=== PATIENT | male | born 1970 | race African-American/Black ===

== ENCOUNTER 2020-12-03 04:00 | Inpatient (IN) ==
[2020-12-03] MEDS ORDERED: SODIUM CHLORIDE 0.9% 1000ML 1,000 ML IV ONE (04:12)
[2020-12-03] MEDS ORDERED: fentaNYL citrate 100 MCG/2 ML VIAL IV STA (04:12)
--- NOTE | 2020-12-03 04:14 | Emergency Department Note ---
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 Developed rapidly worsening epigastric pain with nausea, vomiting and diarrhea. After vomiting started having substernal chest pain as well. Called 911 as weak/lightheaded and had 3 episodes of near/syncope for EMS. On arrival very uncomfortable complaining of severe epigastric pain, no further chest pain. Dehydrated by exam initially. IV fluids, fentanyl with some improvement and given pain, abnormal cxr went straight to CT for CTA. Per rads initially no acute findings on CTA chest/abdo/pelvis. On return CT does start feeling better though required some further medication. Dimer elevated uncertain etiology. Other labs unremarkable. EKG normal as is initial troponin. Given multiple syncope for EMS and chest pain will have eval by hospitalist. No previous cardiac issues and given epigastric pain will hold off on asa at this time. No headache, neck pain, neuro deficits thoughout stay. Triage/Nursing Notes reviewed by Me Differentials:Vasovagal event, dehydration, infection, hypoglycemia, electrolyte abnormalities, cardiac sources, intracerebral event, pulmonary embolism, seizure, toxicologic, neurologic, as well as other pathologies. Vital Signs: reviewed and remarkable for no significant abnormalities Interventions: saline lock, nss bolus, fentanyl 100mcg, dilaudid 0.5mg IV Labs:Reviewed and remarkable for elevated dimer Imaging:X ray results are stated below per my interpretation: Chest: 1 view: Bilateral congestion with widened mediastinum [facility] Radiologist interpretation reviewed by me: "CTA CHEST: No aortic aneurysm or dissection. Motion artifact limits evaluation of lung parenchyma. Mild atelectasis considered most likely. No effusion or pneumothorax. Motion artifact also limits evaluation for pulmonary embolism. Artifact simulates a pulmonary embolism in left upper lobe (image 90, series 7). No convincing evidence of pulmonary embolism. CTA ABDOMEN & PELVIS W/WO Contrast: No aortic aneurysm or dissection. Hepatic steatosis. Solid organs otherwise unremarkable. No free air or free fluid. No bowel obstruction. Radiologist: Cole Dunne MD" EKG:Per My Interpretation: Indication Syncope: NSR 78 bpm, qtc 430. No Ectopy. No Ischemia. No previous for comparison Cardiac/Tele Monitoring: Cardiac Monitoring: An Order was placed for continuous cardiac monitoring. The monitor shows a rate of 70 with a normal sinus rhythm. Consults:Dr Jacob RIGGS Hospitalist Plan: Disposition:Hospitalization. Condition: Good History of Present Illness: 50 yr old male arrives for evaluation of epigastric pain. Patient notes that for the last few hours he has been having increasing epigastric pain. Radiates up his chest. No pain to back nor flanks. Associated with nausea, vomiting, and diarrhea. He has had 3 episodes of syncope. Worse with movement/standing. Better with rest/laying flat. No medications taken for this. This has not occurred previously. Denies previous abdominal issues. No recent ETOH use. No fevers, chills, sob, headache, neck pain, back pain, urinary symptoms, leg swelling, calf pain, rashes, nor other symptoms. Denies trauma nor injury. No medications prior to arrival via EMS. ROS: See above HPI for pertinent positives & negatives. A total of 10 systems reviewed and were otherwise negative. 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 EYES: No scleral icterus, unremarkable pupils. ENT: Mucous membranes moist, no nasal congestion. NECK: No masses appreciated, nomeningismus, trachea is midline. RESPIRATORY: No dyspnea. Clear to auscultation and equal bilaterally. No wheeze, no rhonchi. CARDIOVASCULAR: Regular rate and rhythm.No murmurs, rubs, gallops appreciated. GASTROINTESTINAL: Diffuse upper abdominal TTP and guarding, though abdomen softBowel sounds positive.No masses appreciated. BACK: No midline tenderness, no CVA tenderness EXTREMITIES: Normal motion all extremities, no cyanosis, no edema. NEUROLOGIC: Alert and oriented, no acute motor or sensory deficits, no focal weakness, cranial nerves grossly intact. SKIN: No rash, no jaundice, no diaphoresis. PSYCH: Appropriate GCS: 15 ED Course: Times/Reassessments: multiple rechecks, gradually improving, no further chest pain though epigastric pain remains mild Cole Sandhu MD Past Med/Surg History Medical History (Updated 12/03/20 @ 07:13 by Glenna James DO) No significant past medical history Surgical History (Updated 12/03/20 @ 07:13 by Glenna James DO) No significant past surgical history Family History (Updated 12/03/20 @ 07:13 by Glenna James DO) Other Diabetes Social History (Updated 12/03/20 @ 07:13 by Glenna James DO) Smoking Status: Never smoker Hx Alcohol Use: No Hx Substance Use: No Feels Safe at Home: Yes Allergies Allergies Allergy/AdvReac Type Severity Reaction Status Date / Time No Known Allergies Allergy Unverified 12/03/20 05:35 Home Meds Home Medications Medication Instructions Recorded Confirmed No Known Home Medications 12/03/20 12/03/20 Results & Data (ED) Vital Signs Vital Signs - 24 hr 12/03/20 04:01 12/03/20 04:10 12/03/20 04:22 Temperature 37.2 C Temperature Source Oral Pulse Rate 89 79 70 Pulse Rate from SpO2 Sensor 80 69 Pulse Rhythm Regular Pulse Strength Normal Respiratory Rate 19 22 19 Respiratory Effort / Characteristics Non-Labored Spontaneous Respiratory Depth Normal Respiratory Pattern Regular Blood Pressure 159/92 H 148/99 H 137/92 Blood Pressure Mean 114 115 107 Blood Pressure Position Lying Pulse Oximetry 98 96 96 Oxygen Delivery Method Room Air Room Air Room Air Oxygen Flow Rate Sepsis Recent Fever Within 48 Hours No Sepsis New/Unexplained Change in Mental Status N/A Sepsis Action Taken by Nursing No Action Required 12/03/20 04:30 12/03/20 04:31 12/03/20 04:47 Temperature Temperature Source Pulse Rate 65 64 Pulse Rate from SpO2 Sensor 65 72 65 Pulse Rhythm Pulse Strength Respiratory Rate 10 L 14 Respiratory Effort / Characteristics Respiratory Depth Respiratory Pattern Blood Pressure 111/85 139/94 Blood Pressure Mean 93 109 Blood Pressure Position Pulse Oximetry 88 L 97 99 Oxygen Delivery Method Room Air Nasal Cannula Room Air Oxygen Flow Rate 2 Sepsis Recent Fever Within 48 Hours Sepsis New/Unexplained Change in Mental Status Sepsis Action Taken by Nursing 12/03/20 05:01 12/03/20 05:30 12/03/20 06:00 Temperature Temperature Source Pulse Rate 69 69 72 Pulse Rate from SpO2 Sensor 69 69 73 Pulse Rhythm Pulse Strength Respiratory Rate 14 14 14 Respiratory Effort / Characteristics Respiratory Depth Respiratory Pattern Blood Pressure 128/87 137/92 129/83 Blood Pressure Mean 100 107 98 Blood Pressure Position Pulse Oximetry 99 100 99 Oxygen Delivery Method Room Air Room Air Room Air Oxygen Flow Rate Sepsis Recent Fever Within 48 Hours Sepsis New/Unexplained Change in Mental Status Sepsis Action Taken by Nursing 12/03/20 06:30 Temperature Temperature Source Pulse Rate 69 Pulse Rate from SpO2 Sensor Pulse Rhythm Pulse Strength Respiratory Rate 13 Respiratory Effort / Characteristics Respiratory Depth Respiratory Pattern Blood Pressure 133/79 Blood Pressure Mean 97 Blood Pressure Position Pulse Oximetry 100 Oxygen Delivery Method Room Air Oxygen Flow Rate Sepsis Recent Fever Within 48 Hours Sepsis New/Unexplained Change in Mental Status Sepsis Action Taken by Nursing Laboratory Data Result diagrams: 12/03/20 04:26 12/03/20 04:26 Lab Results 12/03/20 12/03/20 12/03/20 Range/Units 04:26 04:26 04:26 WBC 8.95 (4.8-10.8) K/uL RBC 5.95 (4.7-6.1) M/uL Hgb 16.8 (14.0-18.0) g/dL Hct 49.6 (42-52) % MCV 83.4 (80-100) fL MCH 28.2 (25-34) pg MCHC 33.9 (32-36) g/dL RDW Std Deviation 45.8 (36.4-46.3) fL RDW Coeff of Miguel 15.0 H (11.5-14.5) % Plt Count 282 (130-400) K/uL MPV 9.7 (7.4-10.4) fL Immature Gran % (Auto) 0.0 % Neut % (Auto) 71.6 % Lymph % (Auto) 15.9 % Pepin % (Auto) 8.7 % Eos % (Auto) 3.7 % Baso % (Auto) 0.1 % Neut # (Auto) 6.41 (1.4-6.5) K/uL Lymph # (Auto) 1.42 (1.2-3.4) K/uL [place] # (Auto) 0.78 H (0.11-0.59) K/uL Eos # (Auto) 0.33 (0-0.5) K/uL Baso # (Auto) 0.01 (0-0.2) K/uL Immature Gran # (Auto) 0.00 (0.00-0.02) K/uL D-Dimer 1050 H* (0-500) ug/L FEU Sodium 138 (136-145) mmol/L Potassium 3.9 (3.5-5.1) mmol/L Chloride 101 (98-107) mmol/L Carbon Dioxide 33 H (21-32) mmol/L Anion Gap 4.0 (3-11) BUN 23 H (7-18) mg/dl Creatinine 1.39 (0.6-1.4) mg/dl Est Cr Clr Drug Dosing 70.0 ml/min Est GFR ( Amer) 67.1 Est GFR (Non-Af Amer) 57.9 BUN/Creatinine Ratio 16.3 (10-20) Glucose 111 H (70-99) mg/dl Calcium 9.7 (8.5-10.1) mg/dl Magnesium 2.8 H (1.8-2.4) mg/dl Total Bilirubin 1.0 (0.2-1) mg/dl Direct Bilirubin 0.2 (0-0.2) mg/dl AST 44 H (15-37) U/L ALT 48 (12-78) U/L Alkaline Phosphatase 74 (45-117) U/L Troponin I < 0.015 (0-0.045) ng/ml Total Protein 9.2 H (6.4-8.2) gm/dl Albumin 4.2 (3.4-5.0) gm/dl Lipase 121 (73-393) U/L COVID-19 Eval Order SARS-CoV-2 (PCR) (Negative) Influenza Type A (PCR) (Neg) Influenza Type B (PCR) (Neg) RSV (RT-PCR) (Neg) 12/03/20 12/03/20 Range/Units 04:26 04:26 WBC (4.8-10.8) K/uL RBC (4.7-6.1) M/uL Hgb (14.0-18.0) g/dL Hct (42-52) % MCV (80-100) fL MCH (25-34) pg MCHC (32-36) g/dL RDW Std Deviation (36.4-46.3) fL RDW Coeff of Miguel (11.5-14.5) % Plt Count (130-400) K/uL MPV (7.4-10.4) fL Immature Gran % (Auto) % Neut % (Auto) % Lymph % (Auto) % [place] % (Auto) % Eos % (Auto) % Baso % (Auto) % Neut # (Auto) (1.4-6.5) K/uL Lymph # (Auto) (1.2-3.4) K/uL Pepin # (Auto) (0.11-0.59) K/uL Eos # (Auto) (0-0.5) K/uL Baso # (Auto) (0-0.2) K/uL Immature Gran # (Auto) (0.00-0.02) K/uL D-Dimer (0-500) ug/L FEU Sodium (136-145) mmol/L Potassium (3.5-5.1) mmol/L Chloride (98-107) mmol/L Carbon Dioxide (21-32) mmol/L Anion Gap (3-11) BUN (7-18) mg/dl Creatinine (0.6-1.4) mg/dl Est Cr Clr Drug Dosing ml/min Est GFR ( Amer) Est GFR (Non-Af Amer) BUN/Creatinine Ratio (10-20) Glucose (70-99) mg/dl Calcium (8.5-10.1) mg/dl Magnesium (1.8-2.4) mg/dl Total Bilirubin (0.2-1) mg/dl Direct Bilirubin (0-0.2) mg/dl AST (15-37) U/L ALT (12-78) U/L Alkaline Phosphatase (45-117) U/L Troponin I (0-0.045) ng/ml Total Protein (6.4-8.2) gm/dl Albumin (3.4-5.0) gm/dl Lipase (73-393) U/L COVID-19 Eval Order [facility]FluRsv at [facility] SARS-CoV-2 (PCR) NEGATIVE (Negative) Influenza Type A (PCR) Negative (Neg) Influenza Type B (PCR) Negative (Neg) RSV (RT-PCR) Negative (Neg) Administered Medications Discontinued Medications Fentanyl Citrate (Fentanyl Citrate 100 Mcg/2 Ml Vial) 100 mcg IV NOW STA Stop: 12/03/20 04:13 Last Admin: 12/03/20 04:20 Dose: 100 mcg Documented by: [id number] Hydromorphone HCl (Hydromorphone Inj 0.5 Mg/0.5 Ml Syr) 0.5 mg IV NOW STA Stop: 12/03/20 05:37 Last Admin: 12/03/20 06:12 Dose: 0.5 mg Documented by: [id number] Sodium Chloride (Nss 1000ml) 1,000 mls @ 999 mls/hr IV .Q1H1M ONE Stop: 12/03/20 05:12 Last Infusion: 12/03/20 05:36 Dose: 0 mls/hr Documented by: [id number] Admin: 12/03/20 04:20 Dose: 999 mls/hr Documented by: [id number] Ioversol (Optiray 350 500ml) 125 ml IV ONCE ONE Stop: 12/03/20 04:56 Last Admin: 12/03/20 04:55 Dose: 111 ml Documented by: [id number] Imaging Data Radiologist's Impression: Chest X-Ray 12/03/20 04:12 XR chest 1V portable CLINICAL HISTORY: syncope COMPARISON STUDY: No previous studies for comparison. FINDINGS: The heart is enlarged. There is elevation of interstitium. Pulmonary vascular congestion must be considered.[An interstitial infectious/inflammatory processes could appear similar. There is mild left basilar atelectasis. There is no lobar consolidation. There are no large pleural effusions. IMPRESSION: 1. Elevation of interstitium. Clinical correlation with regards to mild pulmonary vascular congestion/fluid overload recommended. Interstitial i nfectious/inflammatory processes could appear similar. Clinical and radiographic follow-up are recommended ACT 112: Negative or not required by law. Electronically signed by: Román Kan M.D. 12/03/2020 7:28 AM Discharge Plan Visit Data Chief Complaint: Cardiac Assessment Stated Complaint: SYNCOPE/CHEST PAIN/NAUSEA/VOMITING ED Provider: Cole Sandhu Discharge Problem: Syncope, Substernal chest pain, Epigastric abdominal pain, Nausea, vomiting and diarrhea Forms Stand Alone Forms: RACTIV Prescriptions Prescriptions: No Action No Known Home Medications RF: 0 Discharge Problem: Syncope Qualifiers: Syncope type: unspecified Qualified Code(s): R55 - Syncope and collapse
[2020-12-03 04:38] LABS: Basophils # (auto) 0.01 K/uL (0-0.2); Basophils % (auto) 0.1 %; Eosinophils # (auto) 0.33 K/uL (0-0.5); Eosinophils % (auto) 3.7 %; Hematocrit (blood only) 49.6 % (42-52); Hemoglobin 16.8 g/dL (14.0-18.0); Lymphocytes # (auto) 1.42 K/uL (1.2-3.4); Lymphocytes % (auto) 15.9 %; Mean Corpuscular Hemoglobin 28.2 pg (25-34); Mean Corpuscular Hgb Conc 33.9 g/dL (32-36); Mean Corpuscular Volume 83.4 fL (80-100); Mean Platelet Volume 9.7 fL (7.4-10.4); Monocytes # (auto) 0.78 K/uL (0.11-0.59); Monocytes % (auto) 8.7 %; Neutrophils # (auto) 6.41 K/uL (1.4-6.5); Neutrophils % (auto) 71.6 %; Platelet Count 282 K/uL (130-400); RDW Standard Deviation 45.8 fL (36.4-46.3); Red Blood Count 5.95 M/uL (4.7-6.1); White Blood Count 8.95 K/uL (4.8-10.8)
[2020-12-03 04:55] LABS: Alanine Aminotransferase 48 U/L (12-78); Albumin Level 4.2 gm/dl (3.4-5.0); Aspartate Aminotransferase 44 U/L (15-37); BUN Creatinine Ratio 16.3 (10-20); Bilirubin Direct 0.2 mg/dl (0-0.2); Blood Urea Nitrogen 23 mg/dl (7-18); Calcium 9.7 mg/dl (8.5-10.1); Carbon Dioxide 33 mmol/L (21-32); Chloride 101 mmol/L (98-107); Est GFR (African American) 67.1; Est GFR (Non-African American) 57.9; Glucose 111 mg/dl (70-99); Lipase 121 U/L (73-393); Magnesium 2.8 mg/dl (1.8-2.4); Potassium 3.9 mmol/L (3.5-5.1); Sodium 138 mmol/L (136-145)
[2020-12-03] MEDS ORDERED: OPTIRAY 350 500ml IV ONE (04:55)
[2020-12-03 05:00] LABS: Alkaline Phosphatase 74 U/L (45-117); Total Protein 9.2 gm/dl (6.4-8.2); Troponin I < 0.015 ng/ml (0-0.045)
[2020-12-03 05:19] LABS: D Dimer 1050 ug/L FEU (0-500)
[2020-12-03] MEDS ORDERED: HYDROmorphone INJ 0.5 MG/0.5 ML SYR IV STA (05:36)
[2020-12-03 05:41] LABS: Influenza A virus by PCR Negative (Neg); Influenza B virus by PCR Negative (Neg); RSV by PCR Negative (Neg); SARS CoV2 RNA(COVID-19) InHosp NEGATIVE (Negative)
[2020-12-03] MEDS ORDERED: FAMOTIDINE 20MG/5ML IV PUSH IV STA (06:54)
--- NOTE | 2020-12-03 07:17 | History & Physical Report ---
Date of Service December 03, 2020 Assessment & Plan (1) Syncope: Reported syncope x 3 episodes after vomiting preceded by dizziness/lightheadedness. ?Orthostatic vs vasovagal. EKG is WNL. Troponin unremarkable. -Admit to medical with telemetry -Check orthostatic VS -NSS -Repeat troponin x 2 Present on Admission?: Yes (2) Nausea, vomiting and diarrhea: Uncertain etiology. Laboratory results are unremarkable as is CT imaging. Patient reports taking a small amount of milk of magnesium prior to his episode - ?medication effect -Zofran PRN -Pepcid x 1 dose now then daily for heartburn F/E/N - NSS, electrolytes WNL, Heart healthy diet as tolerated Ppx - Encourage ambulation Code - Full Dispo - Admit to medical with telemetry Present on Admission?: Yes History of Present Illness Chief Complaint: Syncope Primary Care Provider: NO PCP 50yo AA male with no known medical history presenting with diarrhea, vomiting, abdominal pain and syncope x 3 events. 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 He pulled over and called for service then developed abdominal pain and had 6-7 episodes of watery, non-bloody diarrhea. He then developed nausea with 4 episodes of non-bloody emesis followed by burning substernal chest discomfort. He felt very weak and lightheaded and reportedly passed out x 3 episodes. Now with abdominal pain as well as ongoing nausea. 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 ER Course: Fentanyl, Dilaudid, NSS Allergies Allergy/AdvReac Type Severity Reaction Status Date / Time No Known Allergies Allergy Unverified 12/03/20 05:35 Home Medications Medication Instructions Recorded Confirmed Type No Known Home Medications 12/03/20 12/03/20 History Past Med/Surg History Medical History (Updated 12/03/20 @ 07:13 by Glenna James DO) No significant past medical history Surgical History (Updated 12/03/20 @ 07:13 by Glenna James DO) No significant past surgical history Family History (Updated 12/03/20 @ 07:13 by Glenna James DO) Other Diabetes Social History (Updated 12/03/20 @ 07:13 by Glenna James DO) Smoking Status: Never smoker Hx Alcohol Use: No Hx Substance Use: No Feels Safe at Home: Yes Review of Systems Review of Systems: All systems reviewed & are unremarkable except as noted in HPI & below Physical Exam Physical Exam: General: patient resting comfortably, NAD, non-toxic in appearance, AA&O x 4 Skin: warm, dry, intact, no rashes or lesions HEENT: NC/AT, PERRL, EOMI, anicteric sclera, conjunctiva without injection, external ear normal to inspection and nontender, nares patent, moist mucus membranes, dentition intact, no oropharyngeal lesions, neck supple, trachea midline, no LAD, no thyromegaly, no JVD Heart: +S1/S2, regular, no m/r/g Lungs: equal air entry bilaterally, no rales/rhonchi/wheezes Abd: +BS, soft, ND, tender wtih deep palpation diffusely with no rebound or guarding, no masses/organomegaly/ascites Ext: warm, 2+ pulses in UE/LE bilaterally, no clubbing/cyanosis or edema Neuro: nonfocal, patient AA&O x 4, speech intact, no facial droop, moving all extremities on command with equal strength 5/5 Results & Data Results & Data ([place]) Vital Signs (Past 12 Hours) Vital Signs Temp Pulse Resp BP Pulse Ox 12/03/20 06:30 69 13 133/79 100 12/03/20 06:00 72 14 129/83 99 12/03/20 05:30 69 14 137/92 100 12/03/20 05:01 69 14 128/87 99 12/03/20 04:47 64 14 139/94 99 12/03/20 04:31 97 12/03/20 04:30 65 10 L 111/85 88 L 12/03/20 04:22 70 19 137/92 96 12/03/20 04:10 79 22 148/99 H 96 12/03/20 04:01 37.2 C 89 19 159/92 H 98 Laboratory Results Lab Results 12/03/20 12/03/20 12/03/20 Range/Units 04:26 04:26 04:26 WBC 8.95 (4.8-10.8) K/uL RBC 5.95 (4.7-6.1) M/uL Hgb 16.8 (14.0-18.0) g/dL Hct 49.6 (42-52) % MCV 83.4 (80-100) fL MCH 28.2 (25-34) pg MCHC 33.9 (32-36) g/dL RDW Std Deviation 45.8 (36.4-46.3) fL RDW Coeff of Miguel 15.0 H (11.5-14.5) % Plt Count 282 (130-400) K/uL MPV 9.7 (7.4-10.4) fL Immature Gran % (Auto) 0.0 % Neut % (Auto) 71.6 % Lymph % (Auto) 15.9 % [place] % (Auto) 8.7 % Eos % (Auto) 3.7 % Baso % (Auto) 0.1 % Neut # (Auto) 6.41 (1.4-6.5) K/uL Lymph # (Auto) 1.42 (1.2-3.4) K/uL [place] # (Auto) 0.78 H (0.11-0.59) K/uL Eos # (Auto) 0.33 (0-0.5) K/uL Baso # (Auto) 0.01 (0-0.2) K/uL Immature Gran # (Auto) 0.00 (0.00-0.02) K/uL D-Dimer 1050 H* (0-500) ug/L FEU Sodium 138 (136-145) mmol/L Potassium 3.9 (3.5-5.1) mmol/L Chloride 101 (98-107) mmol/L Carbon Dioxide 33 H (21-32) mmol/L Anion Gap 4.0 (3-11) BUN 23 H (7-18) mg/dl Creatinine 1.39 (0.6-1.4) mg/dl Est Cr Clr Drug Dosing 70.0 ml/min Est GFR ( Amer) 67.1 Est GFR (Non-Af Amer) 57.9 BUN/Creatinine Ratio 16.3 (10-20) Glucose 111 H (70-99) mg/dl Calcium 9.7 (8.5-10.1) mg/dl Magnesium 2.8 H (1.8-2.4) mg/dl Total Bilirubin 1.0 (0.2-1) mg/dl Direct Bilirubin 0.2 (0-0.2) mg/dl AST 44 H (15-37) U/L ALT 48 (12-78) U/L Alkaline Phosphatase 74 (45-117) U/L Troponin I < 0.015 (0-0.045) ng/ml Total Protein 9.2 H (6.4-8.2) gm/dl Albumin 4.2 (3.4-5.0) gm/dl Lipase 121 (73-393) U/L COVID-19 Eval Order SARS-CoV-2 (PCR) (Negative) Influenza Type A (PCR) (Neg) Influenza Type B (PCR) (Neg) RSV (RT-PCR) (Neg) 12/03/20 12/03/20 Range/Units 04:26 04:26 WBC (4.8-10.8) K/uL RBC (4.7-6.1) M/uL Hgb (14.0-18.0) g/dL Hct (42-52) % MCV (80-100) fL MCH (25-34) pg MCHC (32-36) g/dL RDW Std Deviation (36.4-46.3) fL RDW Coeff of Miguel (11.5-14.5) % Plt Count (130-400) K/uL MPV (7.4-10.4) fL Immature Gran % (Auto) % Neut % (Auto) % Lymph % (Auto) % [place] % (Auto) % Eos % (Auto) % Baso % (Auto) % Neut # (Auto) (1.4-6.5) K/uL Lymph # (Auto) (1.2-3.4) K/uL [place] # (Auto) (0.11-0.59) K/uL Eos # (Auto) (0-0.5) K/uL Baso # (Auto) (0-0.2) K/uL Immature Gran # (Auto) (0.00-0.02) K/uL D-Dimer (0-500) ug/L FEU Sodium (136-145) mmol/L Potassium (3.5-5.1) mmol/L Chloride (98-107) mmol/L Carbon Dioxide (21-32) mmol/L Anion Gap (3-11) BUN (7-18) mg/dl Creatinine (0.6-1.4) mg/dl Est Cr Clr Drug Dosing ml/min Est GFR ( Amer) Est GFR (Non-Af Amer) BUN/Creatinine Ratio (10-20) Glucose (70-99) mg/dl Calcium (8.5-10.1) mg/dl Magnesium (1.8-2.4) mg/dl Total Bilirubin (0.2-1) mg/dl Direct Bilirubin (0-0.2) mg/dl AST (15-37) U/L ALT (12-78) U/L Alkaline Phosphatase (45-117) U/L Troponin I (0-0.045) ng/ml Total Protein (6.4-8.2) gm/dl Albumin (3.4-5.0) gm/dl Lipase (73-393) U/L COVID-19 Eval Order [facility] at [facility] SARS-CoV-2 (PCR) NEGATIVE (Negative) Influenza Type A (PCR) Negative (Neg) Influenza Type B (PCR) Negative (Neg) RSV (RT-PCR) Negative (Neg) Diagnostic Findings CTA Chest and Abdomen - per STAT rad - no acute findings. No PE ECG Additional Comments: EKG with NSR at 78, no acute ischemic changes, no previous studies for comparison PG Care Time/CCT Total # of Minutes Spent Total Time Spent with Patient: Total time spent is greater than 50% in coordination of care (as documented) at patient's floor/unit and/or counseling patient: Coding Level of Care Code 94214 Initial Inpt Care Lvl 2 Diagnoses Syncope R55 Syncope type: unspecified Nausea, vomiting and diarrhea R11.2; R19.7 (1) Syncope Syncope type: unspecified Qualified Code(s): R55 - Syncope and collapse
--- NOTE | 2020-12-03 07:30 | XRay Report ---
XR chest 1V portable CLINICAL HISTORY: syncope COMPARISON STUDY: No previous studies for comparison. FINDINGS: The heart is enlarged. There is elevation of interstitium. Pulmonary vascular congestion mu st be considered.[An interstitial infectious/inflammatory processes could appear similar. There is mi ld left basilar atelectasis. There is no lobar consolidation. There are no large pleural effusions. IMPRESSION: 1. Elevation of interstitium. Clinical correlation with regards to mild pulmonary vascular congestion /fluid overload recommended. Interstitial infectious/inflammatory processes could appear similar. Cli nical and radiographic follow-up are recommended ACT 112: Negative or not required by law. Electronically signed by: Román Kan M.D. 12/03/2020 7:28 AM
--- NOTE | 2020-12-03 07:42 | Hospitalist Progress Note ---
Date of Service December 03, 2020 Assessment & Plan (1) Syncope: Reported syncope x 3 episodes after vomiting preceded by dizziness/lightheadedness. ?Orthostatic vs vasovagal. EKG is WNL. Troponin unremarkable. -follow orthostatic VS -negative troponin x 2 (2) Nausea, vomiting and diarrhea: Uncertain etiology. Laboratory results are unremarkable as is CT imaging. Patient reports taking a small amount of milk of magnesium prior to his episode - ?medication effect pt has painful swallowing maybe mai agustín tear vs significant dyspepsia try carafate slurrey, and follow F/E/N - NSS, electrolytes WNL, Heart healthy diet as tolerated Ppx - Encourage ambulation Code - Full Dispo - Admit to medical with telemetry Subjective His biggest complaint is difficult and painful swallowing. This occurred after he had a vomiting episode patient said prior to his vomiting episode he was severely constipated and took some milk of magnesia. He did have some syncopal experience with his vomiting is difficult to tell if it was vasovagal due to his being alone when this occurred. Currently he is stable with regard to vital signs he had CT scan chest abdomen pelvis without significant remark other than steatohepatitis EKG showing normal sinus rhythm sinus rhythm is also on the monitor negative troponins. He did have a D-dimer that was elevated but his CT angiogram did not show any pulmonary embolisms. Review of Systems Review of Systems: Mild distress and fatigue no headache, blurry or double vision no speech issues but having painful swallowing no chest pain is a burning associated with swallowing, he has no station of pressure or palpitations no shortness of breath, cough or wheezes no abdominal pain, nausea or vomiting, prehospital constipation constipation relieved by milk of magnesia no dysuria, hematuria or frequency no focal joint pain or swelling no back pain, CVA tenderness or radicular pain no bruising, bleeding or rashes no focal signs of weakness or numbness or altered sensation no complaints of anxiety or depression.. Physical Exam Physical Exam: The patient appeared well nourished and normally developed. Vital signs as documented. Head exam is normocephalic atraumatic no scleral icterus Neck is without JVD, thyromegaly, or carotid bruits. Lungs are clear to auscultation, no focal loss of breath sounds Cardiac exam, Rhythm is regular.. No murmurs, rubs or gallops. Abdominal exam reveals normal bowel sounds, soft non tender, epigastric tenderness Extremities are nonedematous and both pedal pulses are present Neurologic exam is alert and oriented, no focal loss of strength or sensation Skin is without bruises or rashes Psychologically is without concerns for anxiety or depression Results & Data Results & Data ([facility]) Vital Signs (Past 12 Hours) Vital Signs Temp Pulse Resp BP Pulse Ox 12/03/20 06:30 69 13 133/79 100 12/03/20 06:00 72 14 129/83 99 12/03/20 05:30 69 14 137/92 100 12/03/20 05:01 69 14 128/87 99 12/03/20 04:47 64 14 139/94 99 12/03/20 04:31 97 12/03/20 04:30 65 10 L 111/85 88 L 12/03/20 04:22 70 19 137/92 96 12/03/20 04:10 79 22 148/99 H 96 12/03/20 04:01 99.0 F 89 19 159/92 H 98 PG Care Time/CCT Total # of Minutes Spent Total Time Spent with Patient: Total time spent is greater than 50% in coordination of care (as documented) at patient's floor/unit and/or counseling patient: Coding Level of Care Code None Diagnoses Syncope R55 Syncope type: unspecified Nausea, vomiting and diarrhea R11.2; R19.7 (1) Syncope Syncope type: unspecified Qualified Code(s): R55 - Syncope and collapse
--- NOTE | 2020-12-03 08:37 | CT Scan Report ---
CT ANGIOGRAPHY OF THE CHEST DISSECTION PROTOCOL CLINICAL HISTORY: Tearing chest pain, multiple syncopal episodes. COMPARISON STUDY: Chest radiograph December 03, 2020. TECHNIQUE: Before and following the IV administration of 111 mL of Optiray, helical axial images of t melissa chest were obtained. Maximal intensity projections and sagittal and coronal reformats were viewed on an independent 3D workstation. IV contrast was administered without complication. Automated exp osure control was utilized for the study. A dose lowering technique was utilized adhering to the jam Ibrahim. CT DOSE: 2937.44 mGy.cm FINDINGS: This exam is mildly compromised motion artifact. The caliber of the thoracic aorta is norm al. There is no intramural hematoma or thoracic aortic dissection. Mild to moderate cardiomegaly is n oted. No pericardial effusion. No central pulmonary embolus is identified. The remainder of the pulmo nary arteries are suboptimal assessed due to respiratory motion. No pneumothorax or pleural effusion is noted. There are groundglass opacities within the lungs. Paraseptal emphysema is present. Central airways are patent. No acute rib or thoracic spine fracture is noted. The abdomen and pelvis will be reported separately. Hepatic steatosis is noted. Osteoarthritis of the right glenohumeral joint is in cidentally noted. IMPRESSION: 1. No thoracic aortic dissection. 2. Exam moderately compromised by motion artifact. 3. Mild to moderate cardiomegaly. 4. Groundglass opacities within the lungs which favor atelectasis. An infectious process could appear similar but is considered less likely. 5. Paraseptal emphysema. ACT 112: Negative or not required by law. Electronically signed by: Frederick Duncan M.D. 12/03/2020 8:36 AM
--- NOTE | 2020-12-03 08:38 | CT Scan Report ---
CT angio abd pelvis wo/w con CT DOSE: CLINICAL HISTORY: epigastric pain, syncope, dissection? TECHNIQUE: Noncontrast images were obtained through the abdomen. CT angiography was then performed th rough the abdomen and pelvis in a dynamic helical fashion during intravenous administration of 111 6 cc of Optiray 320. MIP images were acquired. A dose lowering technique was utilized adhering to the principles of ALARA. COMPARISON STUDY: None. FINDINGS: There are basilar atelectatic changes. There is hepatic steatosis. No gallbladder calculi are visualized. No splenic abnormalities are visualized. Pancreas appears normal on this arterial phase study. No adrenal masses are visualized. No renal masses are visualized in this arterial phase study. There is no hydronephrosis. There are no transition zones indicate bowel obstruction. There is no evidence of acute diverticulitis. There are no findings to indicate acute appendicitis. There is no evidence of abdominal aortic aneurysm or dissection. There is no evidence of celiac artery stenosis. There is no evidence of superior mesenteric artery st enosis. There is no evidence of renal artery stenosis. There is no evidence of iliac artery stenosis. Inferior mesenteric artery is patent. There is no ascites. There is no free intraperitoneal air. There is a small urachal remnant measuring 6 mm in maximal diameter IMPRESSION: 1. Hepatic steatosis 2. No evidence of bowel structure. No evidence of free air 3. No evidence of abdominal aortic aneurysm or dissection 4. No evidence of celiac, superior mesenteric, renal, or iliac artery stenosis 5. Small urachal remnant measuring 6 mm in maximal diameter ACT 112: Negative or not required by law. Electronically signed by: Román Kan M.D. 12/03/2020 8:36 AM
[2020-12-03] MEDS ORDERED: ACETAMINOPHEN 325 MG TAB PO PRN (09:28)
[2020-12-03] MEDS ORDERED: ONDANSETRON INJ 2 MG/ML 2 ML VIAL IV PRN (09:28)
[2020-12-03] MEDS: SODIUM CHLORIDE 0.9% 1000ML 1,000 ML IV SCH ×2 (10:32→17:24)
--- NOTE | 2020-12-03 14:20 | Electrocardiogram Report ---
Test Reason : Blood Pressure : / mmHG Vent. Rate : 078 BPM Atrial Rate : 078 BPM P-R Int : 146 ms QRS Dur : 084 ms QT Int : 378 ms P-R-T Axes : 043 059 038 degrees QTc Int : 430 ms Normal sinus rhythm Normal ECG No previous ECGs available Confirmed by Ayo Elena ([id number]) on 12/03/2020 2:19:48 PM Referred By: Confirmed By:Tripp Elena
[2020-12-03] MEDS: SUCRALFATE 1 GM/10 ML UDC PO SCH ×2 (15:49→21:33)
[2020-12-03] MEDS: PANTOprazole 40 MG TAB PO SCH (21:40)
[2020-12-04 01:39] LABS: Appearance Urine Clear (Clear); Bilirubin Urine Negative (Negative); Blood Urine Negative (Negative); Color Urine Yellow; Glucose Urine UA Negative (Negative); Ketones Urine Negative (Negative); Leukocyte Esterase Urine Negative (Negative); Nitrite Urine Negative (Negative); Protein Urine Negative (Negative); Specific Gravity Urine 1.008 (1.000-1.030); Urobilinogen Urine Negative (Negative); pH Urine 6.5 (4.5-7.5)
[2020-12-04] MEDS: SUCRALFATE 1 GM/10 ML UDC PO SCH ×3 (07:35→16:44)
[2020-12-04] MEDS: PANTOprazole 40 MG TAB PO SCH (07:36)
[2020-12-04 08:47] LABS: Albumin Level 3.1 gm/dl (3.4-5.0); BUN Creatinine Ratio 13.7 (10-20); Creatinine Clr Calc Pharmacy 82.2 ml/min; Est GFR (African American) 80.9; Est GFR (Non-African American) 69.8; Potassium 3.8 mmol/L (3.5-5.1)
[2020-12-04 08:51] LABS: Albumin Globulin Ratio 0.9 (0.9-2); Bilirubin,Total 0.9 mg/dl (0.2-1); Globulin 3.5 gm/dl (2.5-4.0); Total Protein 6.6 gm/dl (6.4-8.2)
[2020-12-04] MEDS ORDERED: FAMOTIDINE 40 MG TABLET PO SCH (09:00)
[2020-12-04 09:12] LABS: Hematocrit (blood only) 41.8 % (42-52); Hemoglobin 13.6 g/dL (14.0-18.0); Mean Corpuscular Hemoglobin 27.5 pg (25-34); Mean Corpuscular Hgb Conc 32.5 g/dL (32-36); Mean Corpuscular Volume 84.4 fL (80-100); Mean Platelet Volume 9.6 fL (7.4-10.4); Platelet Count 259 K/uL (130-400); RDW Coefficient of Variation 15.3 % (11.5-14.5); Red Blood Count 4.95 M/uL (4.7-6.1); White Blood Count 7.75 K/uL (4.8-10.8)
--- NOTE | 2020-12-04 17:33 | Discharge Summary ---
Date of Service December 04, 2020 Admission HPI Per Admitting Provider 50yo AA male with no known medical history presenting with diarrhea, vomiting, abdominal pain and syncope x 3 events. 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 He pulled over and called for service then developed abdominal pain and had 6-7 episodes of watery, non-bloody diarrhea. He then developed nausea with 4 episodes of non-bloody emesis followed by burning substernal chest discomfort. He felt very weak and lightheaded and reportedly passed out x 3 episodes. Now with abdominal pain as well as ongoing nausea. 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 oral pharnyx is clear and not erythematous Lungs are clear to auscultation and appear unlabored Cardiac exam, Rhythm is regular.. No murmurs, rubs or gallops. Abdominal exam reveals normal bowel sounds, soft epigastric tenderness cw dyspepsia Extremities are nonedematous and both pedal pulses are normal. Neurologic exam is alert and oriented, no focal loss of strength or sensation Skin is without bruises or rashes Psychologically is without concerns for anxiety or depression. Discharge Data Allergies Allergy/AdvReac Type Severity Reaction Status Date / Time No Known Allergies Allergy Unverified 12/03/20 05:35 Consultations 12/03/20 05:58 ED Decision to Admit Stat Ordered Studies 12/03/20 04:25 CT angio abd pelvis wo/w con Urgent CT angio chest dissec wo/w con Urgent Hospital Course (1) Syncope: Reported syncope x 3 episodes after vomiting preceded by dizziness/lightheadedness. ?Orthostatic vs vasovagal. EKG is WNL. Troponin unremarkable. -improved with hydration -negative troponin x 2 (2) Nausea, vomiting and diarrhea: Uncertain etiology. Laboratory results are unremarkable as is CT imaging. Patient reports taking a small amount of milk of magnesium prior to his episode - ?medication effect pt has painful swallowing maybe mai agustín tear vs significant dyspepsia will have home on carafate liquid and protonix, encouraged early follow up at home, offered for pt to stay for barium swallow or upper endoscopy but states he wanted to leave to go home is toleratant of soft diet at this point Code - Full Total Time Total Time Spent Total Time Spent (In Minutes): It required greater than 30 minutes to prepare this patient for discharge Discharge Plan Discharge Items Patient Disposition: Home - Self-Care Reason For Visit: SYNCOPE Discharge Diagnosis: nausea and vomiting esophagitis (inflammation of swallowing tube) Activity: Resume your previous activity Non-emergency contact: Primary Care Provider Call non-emergency contact if: you have any medication questions and your symptoms worsen Follow-up/Referrals: PCP,NO [Primary Care Provider] - Diet: Regular Diet Comment: avoid spicey, citrus or tomato based foods at this time Addtl Attending Provider Instructions: please take medication as prescribed follow up with family doctor as soon as able Pending Studies at Discharge: No Stand-Alone Forms: [employer], Smoking Cessation Medications and DC Order Prescriptions: New sucralfate 100 mg/mL Suspension 1 g PO ACHS Qty: 400 RF: 0 pantoprazole 40 mg Tablet,Delayed Release (Dr/Ec) 40 mg PO BID Qty: 60 RF: 0 No Action No Known Home Medications RF: 0 Discharge Orders: Discharge Order (Routine); Ordered 12/04/20 Ordered By: Ziggy Kwong Admission Data Admit Date/Time: 12/03/20 07:09 Attending Provider: Ziggy Kwong Admit Provider: Glenna James Primary Care Provider: PCP,NO Other Providers: Glenna James Other Interventions: Discharge Summary Assessment (RN) Last Done: 12/04/20 11:45 Coding Level of Care Code D/C Day Management >30 mins Diagnoses Syncope R55 Syncope type: unspecified Nausea, vomiting and diarrhea R11.2; R19.7
== END 2020-12-04 17:30 | disposition home or self-care (01) | DRG 312 ==
LOC: ED 04:00 → 2W 07:09 → SUATTDRO 07:09 → 2W 08:54